=== PATIENT | male | born 1980 | race Caucasian/White ===

== ENCOUNTER 2018-04-20 03:34 | Observation (INO) | payer SELFPAY ==
[~2018-04-20] VITALS: Ht 167.6 cm; Wt 75.3 kg
--- NOTE | 2018-04-20 03:36 | PHYS DOC ---
Past Medical History Past Medical History: Asthma Past Surgical History: Other (Vasectomy) Alcohol Use: Occasionally Drug Use: Marijuana Adult General Chief Complaint Chief Complaint: SHORTNESS OF BREATH HPI HPI Patient is a 37 year old man who presents with SOB The patient has a history of asthma with prior admissions to the hospital. He's never been intubated. Over the past week, he noted onset of an upper respiratory infection. He took OTC cold medications with some relief, but had recurrent symptoms and went to an urgent care a couple days ago. He was given a Z-Stephen and DuoNeb's. Since then, he's gotten worse, especially today with increased wheezing requiring more breathing treatments. Patient has nonproductive cough, no fevers. Denies any chest pain. He smokes marijuana on a regular basis. Review of Systems Review of Systems Constitutional: Denies fever or chills Eyes: Denies change in visual acuity, redness, or eye pain HENT: Denies nasal congestion or sore throat Respiratory: With cough and shortness of breath Cardiovascular: Denies chest pain or palpitations GI: Denies abdominal pain, nausea, vomiting, bloody stools or diarrhea : Denies dysuria or hematuria Musculoskeletal: Denies back pain or joint pain Integument: Denies rash or skin lesions Neurologic: Denies headache, focal weakness or sensory changes Endocrine: Denies polyuria or polydipsia All other systems were reviewed and found to be within normal limits, except as documented in this note. Current Medications Current Medications Current Medications Medications (Trade) Dose Ordered Sig/Lissette Start Time Stop Time Status Last Admin Dose Admin Albuterol Sulfate (Ventolin Neb Soln) 10 mg 1X ONCE 04/20/18 04:00 04/20/18 04:01 DC 04/20/18 03:59 10 MG Albuterol/ Ipratropium (Duoneb) 3 ml 1X ONCE 04/20/18 04:00 04/20/18 04:01 DC 04/20/18 03:59 3 ML Methylprednisolone Sodium Succinate (SOLU-Medrol 125MG VIAL) 125 mg 1X ONCE 04/20/18 04:00 04/20/18 04:01 DC 04/20/18 04:09 125 MG Allergies Allergies Allergies Coded Allergies Type Severity Reaction Last Updated Verified No Known Drug Allergies 04/20/18 No Physical Exam Physical Exam Constitutional: Well developed, well nourished, in mild respiratory distress with increased work of breathing, non-toxic appearance. HENT: Normocephalic, atraumatic, bilateral external ears normal, oropharynx moist, no oral exudates, nose normal. Eyes: PERRLA, EOMI, conjunctiva normal, no discharge. Neck: Normal range of motion, no tenderness, supple, no stridor. Cardiovascular: Fast rate and rhythm Lungs & Thorax: Bilateral wheezing with increased work respirations Abdomen: Bowel sounds normal, soft, no tenderness, no masses, no pulsatile masses. Skin: Warm, dry, no erythema, no rash. Back: No tenderness, no CVA tenderness. Extremities: No tenderness, no cyanosis, no clubbing, ROM intact, no edema. Neurologic: Alert and oriented X 3, normal motor function, normal sensory function, no focal deficits noted. Psychologic: Affect normal, judgement normal, mood normal. Current Patient Data Vital Signs Vital Signs Date Time Temp Pulse Resp B/P (MAP) Pulse Ox O2 Delivery O2 Flow Rate FiO2 04/20/18 05:05 97 20 117/72 (87) 94 Room Air 04/20/18 03:40 97.6 97.6 Lab Values Laboratory Tests Test 04/20/18 03:55 04/20/18 04:50 04/20/18 05:55 White Blood Count 16.8 x10^3/uL (4.0-11.0) H Red Blood Count 5.05 x10^6/uL (4.30-5.70) Hemoglobin 15.4 g/dL (13.0-17.5) Hematocrit 44.1 % (39.0-53.0) Mean Corpuscular Volume 87 fL (79-100) Mean Corpuscular Hemoglobin 31 pg (25-35) Mean Corpuscular Hemoglobin Concent 35 g/dL (31-37) Red Cell Distribution Width 12.8 % (11.5-14.5) Platelet Count 418 x10^3/uL (140-400) H Neutrophils (%) (Auto) 70 % (31-73) Lymphocytes (%) (Auto) 16 % (24-48) L Monocytes (%) (Auto) 6 % (0-9) Eosinophils (%) (Auto) 7 % (0-3) H Basophils (%) (Auto) 0 % (0-3) Neutrophils # (Auto) 11.7 x10^3uL (1.8-7.7) H Lymphocytes # (Auto) 2.8 x10^3/uL (1.0-4.8) Monocytes # (Auto) 1.1 x10^3/uL (0.0-1.1) Eosinophils # (Auto) 1.2 x10^3/uL (0.0-0.7) H Basophils # (Auto) 0.1 x10^3/uL (0.0-0.2) Sodium Level 141 mmol/L (136-145) Potassium Level 3.8 mmol/L (3.5-5.1) Chloride Level 106 mmol/L (98-107) Carbon Dioxide Level 23 mmol/L (21-32) Anion Gap 12 (6-14) Blood Urea Nitrogen 17 mg/dL (8-26) Creatinine 1.0 mg/dL (0.7-1.3) Estimated GFR (Cockcroft-Gault) 83.6 Glucose Level 102 mg/dL (70-99) H Lactic Acid Level 1.3 mmol/L (0.4-2.0) Calcium Level 9.7 mg/dL (8.5-10.1) NM-Nct-Z-Type Natriuretic Peptide 9 pg/mL (0-124) D-Dimer (Yuliana) < 0.27 ug/mlFEU O2 Saturation 91 % (92-99) L Arterial Blood pH 7.44 (7.35-7.45) Arterial Blood pCO2 at Patient Temp 34 mmHg (35-46) L Arterial Blood pO2 at Patient Temp 58 mmHg (85-108) L Arterial Blood HCO3 22 mmol/L (21-28) Arterial Blood Base Excess -1 mmol/L (-3-3) FiO2 21.0 Laboratory Tests 04/20/18 03:55 Laboratory Tests 04/20/18 03:55 EKG EKG ECG 04:07 Sinus tachycardia @ [address]-T wave changes suggestive of ischemia Radiology/Procedures Radiology/Procedures [facility] [address] [place], [place] [id number] IMAGING REPORT Signed PATIENT: PÉREZ CHAVIRA ACCOUNT: [id number] : 1980 LOCATION: ER AGE: 37 SEX: M EXAM STATUS: REG ER ORD. PHYSICIAN: DARIUS RAMESH MD REASON: shortness of breath PROCEDURE: CHEST PA & LATERAL Chest PA and lateral: Reason for examination: Cough and shortness of breath. The heart size is normal. Mediastinum is unremarkable. Lung mosqueda are hyperaerated with no infiltrates or pleural effusions. No acute bony abnormalities are seen. Impression: Hyperaeration of the lungs. No acute cardiopulmonary disease. Electronically signed by: Funmilayo Delacruz MD (04/20/2018 5:46 AM) [facility] DICTATED and SIGNED BY: FUNMILAYO DELACRUZ MD DATE: 04/20/18 0545 Course & Med Decision Making Course & Med Decision Making Pertinent Labs and Imaging studies reviewed. (See chart for details) Emergency department course Patient presents with SOB and wheezing DDx- asthma exacerbation, COPD, pneumonia, PE, CHF Patient had persistent hypoxemia in the ED despite serial nebulizers and Solumedrol IV. His SOB and wheezing improved. ECG showed no acute injury pattern. CXR showed hyperinflation without PNA or CHF. D-dimer normal, doubt PE. Labs were remarkable for leukocytosis. 05:35 The patient improved with decreased shortness of breath. On exam patient has persistent end expiratory wheezing bilaterally. He no longer has increased work of breathing. His O2 sat on room air is 91%. Patient given NC O2 2liters with increased O2 sats to 95%. 06:[address] Lopez who agreed with admission for 23 hour observation. Dragon Disclaimer Dragon Disclaimer This electronic medical record was generated, in whole or in part, using a voice recognition dictation system. Departure Departure Impression: Primary Impression: Acute asthma exacerbation Additional Impressions: Hypoxemia Leukocytosis Disposition: ADMITTED INPATIENT Admitting Physician: Yoli Lopez Condition: STABLE Problem Qualifiers DARIUS RAMESH MD Apr 20, 2018 03:36
[2018-04-20] MEDS ORDERED: PROAIR HFA8.5 GM INH (03:47)
[2018-04-20] MEDS ORDERED: methylPREDNISolone SOD SUCC PF 125 MG/2 ML VIAL. IV ONE (04:00)
[2018-04-20] MEDS ORDERED: IPRATRPIUM/ALBUTEROL 0.5/2.5MG 3 ML NEBU. NEB ONE (04:00)
[2018-04-20] MEDS ORDERED: ALBUTEROL SULFATE 2.5 MG/3 ML NEBU. CONT NEB ONE (04:00)
[2018-04-20 04:26] LABS: BASO # 0.1 x10^3/uL (0.0-0.2); BASO % 0 % (0-3); EOS # 1.2 x10^3/uL (0.0-0.7); EOS % 7 % (0-3); HEMATOCRIT 44.1 % (39.0-53.0); HEMOGLOBIN 15.4 g/dL (13.0-17.5); LYMPH # 2.8 x10^3/uL (1.0-4.8); LYMPH % 16 % (24-48); MEAN CORPUSCULAR HEMOGLOBIN 31 pg (25-35); MEAN CORPUSCULAR HGB CONC 35 g/dL (31-37); MEAN CORPUSCULAR VOLUME 87 fL (79-100); MONO # 1.1 x10^3/uL (0.0-1.1); MONO % 6 % (0-9); NEUT # 11.7 x10^3uL (1.8-7.7); NEUT % 70 % (31-73); PLATELET COUNT 418 x10^3/uL (140-400); RED BLOOD COUNT 5.05 x10^6/uL (4.30-5.70); RED CELL DISTRIBUTION WIDTH 12.8 % (11.5-14.5); WHITE BLOOD COUNT 16.8 x10^3/uL (4.0-11.0)
[2018-04-20 04:50] LABS: CALCIUM 9.7 mg/dL (8.5-10.1); GFR 83.6; POTASSIUM 3.8 mmol/L (3.5-5.1)
--- NOTE | 2018-04-20 05:49 | RAD ---
Chest PA and lateral: Reason for examination: Cough and shortness of breath. The heart size is normal. Mediastinum is unremarkable. Lung mosqueda are hyperaerated with no infiltrates or pleural effusions. No acute bony abnormalities are seen. Impression: Hyperaeration of the lungs. No acute cardiopulmonary disease. Electronically signed by: Naya Zavaleta MD (04/20/2018 5:46 AM) [facility]
[2018-04-20 05:58] LABS: BASE EXCESS ABG -1 mmol/L (-3-3); HCO3 ABG 22 mmol/L (21-28); PCO2 ABG 34 mmHg (35-46); PO2 ABG 58 mmHg (85-108); SAT O2 ABG 91 % (92-99)
--- NOTE | 2018-04-20 06:16 | EKG ---
[facility] [address] [place] [address] Test Date: 2018-04-20 Test Time: 04:00:33 Pat Name: PÉREZ CHAVIRA Department: Room: Gender: M Or Nurse Manager: : 1980 Requested By: DARIUS RAMESH Order Number: [id number] Reading MD: Jc Renee MD Measurements Intervals Alexander Rate: 110 P: 66 WI: 164 QRS: 17 QRSD: 72 T: 46 QT: 310 QTc: 425 Interpretive Statements SINUS TACHYCARDIA Electronically Signed On 04-24-2018 8:38:18 CDT by Jc Renee MD
[2018-04-20 08:05] VITALS: BP 136/83
[2018-04-20] MEDS ORDERED: IPRA0.2S5 IH (08:40)
[2018-04-20] MEDS ORDERED: AZIT250T6 PO (08:40)
[2018-04-20 10:47] VITALS: BP 122/71
--- NOTE | 2018-04-20 11:02 | SSS ---
ADMIT DATE: 04/20/2018 SHORT STAY SUMMARY CHIEF COMPLAINT: Shortness of breath. HISTORY OF PRESENT ILLNESS: The patient is a pleasant 37-year-old male with known asthma. He presented with shortness of breath. ER doctor was concerned and let him go because he responded to the breathing treatments, but he was hypoxic at 91%. We went ahead and admitted the patient this morning. He is doing a little better. He is still wheezing, so I am going to consult Dr. Zheng. I did discuss the case with Dr. Zheng as well. We will help with discharge this afternoon if he is improving. PAST MEDICAL HISTORY: Asthma and vasectomy. ALLERGIES: None. FAMILY HISTORY: Hypertension. SOCIAL HISTORY: He does not drink, smoke or take drugs. He does use marijuana socially. MEDICATIONS: Reviewed. Please refer to the MRAD. REVIEW OF SYSTEMS: GENERAL: No history of weight change, weakness or fevers. SKIN: No bruising, hair changes or rashes. EYES: No blurred, double or loss of vision. NOSE AND THROAT: No history of nosebleeds, hoarseness or sore throat. HEART: No history of palpitations, chest pain or shortness of breath on exertion. LUNGS: Denies cough, hemoptysis, wheezing or shortness of breath. GASTROINTESTINAL: Denies changes in appetite, nausea, vomiting, diarrhea or constipation. GENITOURINARY: No history of frequency, urgency, hesitancy or nocturia. NEUROLOGIC: Denies history of numbness, tingling, tremor or weakness. PSYCHIATRIC: No history of panic, anxiety or depression. ENDOCRINE: No history of heat or cold intolerance, polyuria or polydipsia. EXTREMITIES: Denies muscle weakness, joint pain, pain on walking or stiffness. PHYSICAL EXAMINATION: VITAL SIGNS: Temperature afebrile, pulse 92, respirations 18 and blood pressure 148/94. GENERAL: He is alert, cooperative. HEART: Normal S1, S2. LUNGS: Mostly clear with some slight wheezing anteriorly. ABDOMEN: Soft. EXTREMITIES: No edema. SKIN: No rash. ENDOCRINE: No thyromegaly. LYMPHATICS: No cervical nodes. HEMATOPOIETIC: No bruising. LABORATORY DATA: Hematology normal other than a white count of 16.8, but he is on steroids. Electrolytes are normal. ASSESSMENT AND PLAN: Asthma exacerbation. The patient has been admitted. We have consulted Pulmonary. We gave him IV steroids, breathing treatments and oxygen. I suspect he will be resolved by this afternoon and hope to discharge. DISPOSITION: Home. ACTIVITY: As tolerated. DIET: Low sodium. MEDICATIONS: Please see the MRAD. TOTAL TIME: 32 minutes. LUANNE MCKEON DO DR: BI/aftab JOB#: [id number] / [id number]
[2018-04-20] MEDS: IPRATRPIUM/ALBUTEROL 0.5/2.5MG 3 ML NEBU. NEB SCH ×2 (11:43→15:50)
[2018-04-20] MEDS ORDERED: ACETAMINOPHEN 325 MG TABLET. PO PRN (14:00)
[2018-04-20 14:57] VITALS: BP 137/90
--- NOTE | 2018-04-20 17:29 | PDOC ---
PULMONARY PROGRESS NOTES Vitals Vital Signs Date Time Temp Pulse Resp B/P (MAP) Pulse Ox O2 Delivery O2 Flow Rate FiO2 04/20/18 15:52 Nasal Cannula 2.0 04/20/18 14:57 97.9 93 18 137/90 (106) 97 97.9 Labs Laboratory Tests Test 04/20/18 03:55 04/20/18 04:50 04/20/18 05:55 White Blood Count 16.8 x10^3/uL (4.0-11.0) Red Blood Count 5.05 x10^6/uL (4.30-5.70) Hemoglobin 15.4 g/dL (13.0-17.5) Hematocrit 44.1 % (39.0-53.0) Mean Corpuscular Volume 87 fL (79-100) Mean Corpuscular Hemoglobin 31 pg (25-35) Mean Corpuscular Hemoglobin Concent 35 g/dL (31-37) Red Cell Distribution Width 12.8 % (11.5-14.5) Platelet Count 418 x10^3/uL (140-400) Neutrophils (%) (Auto) 70 % (31-73) Lymphocytes (%) (Auto) 16 % (24-48) Monocytes (%) (Auto) 6 % (0-9) Eosinophils (%) (Auto) 7 % (0-3) Basophils (%) (Auto) 0 % (0-3) Neutrophils # (Auto) 11.7 x10^3uL (1.8-7.7) Lymphocytes # (Auto) 2.8 x10^3/uL (1.0-4.8) Monocytes # (Auto) 1.1 x10^3/uL (0.0-1.1) Eosinophils # (Auto) 1.2 x10^3/uL (0.0-0.7) Basophils # (Auto) 0.1 x10^3/uL (0.0-0.2) Sodium Level 141 mmol/L (136-145) Potassium Level 3.8 mmol/L (3.5-5.1) Chloride Level 106 mmol/L (98-107) Carbon Dioxide Level 23 mmol/L (21-32) Anion Gap 12 (6-14) Blood Urea Nitrogen 17 mg/dL (8-26) Creatinine 1.0 mg/dL (0.7-1.3) Estimated GFR (Cockcroft-Gault) 83.6 Glucose Level 102 mg/dL (70-99) Lactic Acid Level 1.3 mmol/L (0.4-2.0) Calcium Level 9.7 mg/dL (8.5-10.1) YT-Yew-R-Type Natriuretic Peptide 9 pg/mL (0-124) D-Dimer (Yuliana) < 0.27 ug/mlFEU O2 Saturation 91 % (92-99) Arterial Blood pH 7.44 (7.35-7.45) Arterial Blood pCO2 at Patient Temp 34 mmHg (35-46) Arterial Blood pO2 at Patient Temp 58 mmHg (85-108) Arterial Blood HCO3 22 mmol/L (21-28) Arterial Blood Base Excess -1 mmol/L (-3-3) FiO2 21.0 Laboratory Tests Test 04/20/18 03:55 04/20/18 04:50 04/20/18 05:55 White Blood Count 16.8 x10^3/uL (4.0-11.0) Red Blood Count 5.05 x10^6/uL (4.30-5.70) Hemoglobin 15.4 g/dL (13.0-17.5) Hematocrit 44.1 % (39.0-53.0) Mean Corpuscular Volume 87 fL (79-100) Mean Corpuscular Hemoglobin 31 pg (25-35) Mean Corpuscular Hemoglobin Concent 35 g/dL (31-37) Red Cell Distribution Width 12.8 % (11.5-14.5) Platelet Count 418 x10^3/uL (140-400) Neutrophils (%) (Auto) 70 % (31-73) Lymphocytes (%) (Auto) 16 % (24-48) Monocytes (%) (Auto) 6 % (0-9) Eosinophils (%) (Auto) 7 % (0-3) Basophils (%) (Auto) 0 % (0-3) Neutrophils # (Auto) 11.7 x10^3uL (1.8-7.7) Lymphocytes # (Auto) 2.8 x10^3/uL (1.0-4.8) Monocytes # (Auto) 1.1 x10^3/uL (0.0-1.1) Eosinophils # (Auto) 1.2 x10^3/uL (0.0-0.7) Basophils # (Auto) 0.1 x10^3/uL (0.0-0.2) Sodium Level 141 mmol/L (136-145) Potassium Level 3.8 mmol/L (3.5-5.1) Chloride Level 106 mmol/L (98-107) Carbon Dioxide Level 23 mmol/L (21-32) Anion Gap 12 (6-14) Blood Urea Nitrogen 17 mg/dL (8-26) Creatinine 1.0 mg/dL (0.7-1.3) Estimated GFR (Cockcroft-Gault) 83.6 Glucose Level 102 mg/dL (70-99) Lactic Acid Level 1.3 mmol/L (0.4-2.0) Calcium Level 9.7 mg/dL (8.5-10.1) BD-Pch-C-Type Natriuretic Peptide 9 pg/mL (0-124) D-Dimer (Yuliana) < 0.27 ug/mlFEU O2 Saturation 91 % (92-99) Arterial Blood pH 7.44 (7.35-7.45) Arterial Blood pCO2 at Patient Temp 34 mmHg (35-46) Arterial Blood pO2 at Patient Temp 58 mmHg (85-108) Arterial Blood HCO3 22 mmol/L (21-28) Arterial Blood Base Excess -1 mmol/L (-3-3) FiO2 21.0 Medications Active Scripts Medications Dose Route/Sig Max Daily Dose Days Date Category Azithromycin Tablet (Azithromycin) 250 Mg Tablet 250 Mg PO DAILY 6 04/20/18 Reported Ipratropium [place] 0.2 Mg/1 Ml Solution 0.5 Mg IH QID 04/20/18 Reported Proair Hfa Inhaler (Albuterol Sulfate) 8.5 Gm Hfa.aer.ad 1 Puff INH PRN Q6HRS PRN 04/20/18 Reported Impression . DICTATED MANISH HURLEY MD Apr 20, 2018 17:29
[2018-04-20] MEDS ORDERED: methylPREDNISolone SOD SUCC PF 125 MG/2 ML VIAL. IV SCH (21:00)
--- NOTE | 2018-04-20 23:14 | CONS ---
DATE OF CONSULTATION: 04/20/2018 ATTENDING PHYSICIAN: Dr. Lopez. REASON FOR CONSULTATION: The patient seen in pulmonary consultation at the request of Dr. Lopez for asthma. HISTORY OF PRESENT ILLNESS: The patient is a 37-year-old who has had asthma all of his life. He also smokes, only uses ProAir on a p.r.n. basis approximately once per day. Does well with just ProAir. He has not had any acute exacerbations, presented as a result of increasing shortness of breath, cough productive of discolored sputum. He smokes. He also smokes marijuana. Denies fever, chills, night sweats. PAST MEDICAL HISTORY: Asthma. FAMILY HISTORY: Hypertension. SOCIAL HISTORY: He works. He smokes marijuana. REVIEW OF SYSTEMS: As indicated above, otherwise, a 10-point system was reviewed and negative. PHYSICAL EXAMINATION: GENERAL: The patient was in no respiratory distress. VITAL SIGNS: Stable. O2 saturation was greater than 92%. NECK: Jugular venous distention was not elevated. LUNGS: Clear. No wheezes. CARDIOVASCULAR: Regular rate and rhythm with S1, S2, no S3. ABDOMEN: Soft, nontender, nondistended. EXTREMITIES: No clubbing, cyanosis or edema. Chest x-ray was reviewed, no acute infiltrates. LABORATORY DATA: Reviewed. White count was elevated. Hemoglobin and hematocrit were noted. Arterial blood gas: He was hypoxic. He had slight hypoxemia, pO2 of 58 on room air. D-dimer was not elevated. IMPRESSION: 1. Acute exacerbation of asthma. 2. Acute nonspecific bronchitis. 3. Marijuana use contributing to bronchospasm. 4. Hypoxemia secondary to above. PLAN: 1. The patient has improved since admission and discharged home. 2. I gave him samples of Symbicort, which he has used in the past. 3. I gave him my business card to follow up in my office. 4. Prescription written for doxycycline and ProAir. 5. Dr. Lopez had written a prescription for steroid taper. 6. The patient was instructed on the importance of constant utilization of a preventive medication with the steroid any such as Symbicort or Advair. 7. He was also instructed on the importance of discontinuing all tobacco products and discontinuing marijuana smoking. MANISH HURLEY MD DR: ALYSSA/aftab JOB#: [id number] / [id number]
== END 2018-04-20 19:41 | disposition home or self-care (01) ==
LOC: ER 03:34 → 6 SOUTH 06:30 → 5 SOUTH 08:08
PROVIDERS: ADMIT Internal Medicine; ATTEND Internal Medicine
DX: J45.901 Unspecified asthma with (acute) exacerbation (principal); F12.90 Cannabis use, unspecified, uncomplicated; R05 Cough; J44.9 Chronic obstructive pulmonary disease, unspecified; J18.9 Pneumonia, unspecified organism; D72.829 Elevated white blood cell count, unspecified; R09.02 Hypoxemia; I50.9 Heart failure, unspecified
CPT/HCPCS: 36415; 36600; 71046; 80048; 82805; 83605; 83880; 85025; 85379; 87040; 90471; 90756; 93005; 94640; 94644; 94760; 96374; 99285; G0378; J2930; J7613; J7620; G0379; Q2035